=== PATIENT | male | born 1940 | race Caucasian/White ===

== ENCOUNTER 2023-11-12 09:54 | Emergency (ER) | payer MEDICARE ==
[~2023-11-12] VITALS: Ht 188 cm; Wt 97.7 kg
[~2023-11-12 09:54] MED LIST: CYCL-1 PO; HYDR-4383 PO
[2023-11-12 10:24] LABS: BASOPHILS % (AUTO) 0.7 % (0-1); EOSINOPHILS % (AUTO) 0.6 % (0-6); HEMATOCRIT 28.8 % (42.0-52.0); LYMPHOCYTES # (AUTO) 0.3 X10'3 (1.1-4.8); LYMPHOCYTES % (AUTO) 17.1 % (21-51); MEAN CORPUSCULAR HEMOGLOBIN 34.7 PG (27.0-31.0); MEAN CORPUSCULAR HGB CONC 34.7 g/dL (33.0-36.5); MEAN PLATELET VOLUME 8.5 FL (7.4-10.4); MONOCYTES # (AUTO) 0.4 X10'3 (0-0.9); MONOCYTES % (AUTO) 27.6 % (2-12); NEUTROPHILS # (AUTO) 0.9 X10'3 (1.8-7.7); PLATELET COUNT 58 X10'3 (140-440); RED BLOOD COUNT 2.88 X10'6 (4.70-6.10); WHITE BLOOD COUNT 1.6 X10'3 (4.5-11.0)
[2023-11-12] MEDS: normal saline 1000ML IV soln IV ONE (10:40)
[2023-11-12 10:59] LABS: ANISOCYTOSIS 2+; NUCLEATED RED BLOOD CELLS 1 /100WBC (0-0); PLATELET ESTIMATE DECREASED; TOTAL CELLS COUNTED 100
[2023-11-12 11:00] LABS: TEAR DROP CELLS 1+
[2023-11-12 11:43] LABS: ALBUMIN 3.6 G/DL (3.4-5.0); ANION GAP 8 (8-16); BLOOD UREA NITROGEN 21 MG/DL (7-18); BUN/CREATININE RATIO 18.6 (10.0-20.0); CALCIUM 9.3 MG/DL (8.5-10.1); CHLORIDE 102 MMOL/L (99-107); CREATININE 1.13 MG/DL (0.60-1.10); GLUCOSE 119 MG/DL (70-104); MAGNESIUM 1.8 MG/DL (1.5-2.4); POTASSIUM 3.9 MMOL/L (3.5-5.1); SODIUM 138 MMOL/L (135-145); TOTAL CARBON DIOXIDE 28.2 MMOL/L (24-32); eCRCL 59 ML/MIN; eGFR 62 ML/MIN
[2023-11-12 13:06] VITALS: BP 111/71; PULSE 90; RESP 20; TEMP 97.8; O2SAT 96
== END 2023-11-12 13:13 | disposition home or self-care (01) ==
LOC: ER 09:54
DX: S01.01XA Laceration without foreign body of scalp, initial encounter (principal); R55 Syncope and collapse; Z88.2 Allergy status to sulfonamides; W10.8XXA Fall (on) (from) other stairs and steps, initial encounter; Y93.89 Activity, other specified; Y92.89 Other specified places as the place of occurrence of the external cause; Y99.8 Other external cause status
CPT/HCPCS: 12001; 36415; 70450; 71045; 80048; 83605; 83735; 84145; 84484; 85007; 85025; 85379; 87040; 93005; 96360; 99285; A6402; J7030; A6449

== ENCOUNTER 2024-09-15 08:04 | Emergency (ER) | payer MEDICARE ==
[~2024-09-15] VITALS: Ht 193 cm; Wt 109.1 kg
[~2024-09-15 08:04] MED LIST changes: +ASPI81TA53 PO; +ATEN-236 PO; +ATOR40TA71 PO; +CARB1TAB36 PO; -CYCL-1 PO; -HYDR-4383 PO
--- NOTE | 2024-09-15 08:22 | ELECTROCARDIOGRAPH REPORT ---
[facility] Test Date: 2024-09-15 Test Time: 08:17:02 Pat Name: ZAC PIERRE Department: [facility]-ER Patient ID: [id number] Room: Gender: M Child Support Specialist: : 1940 Requested By: GERRY MCDANIEL Order Number: [id number] Reading MD: Measurements Intervals [place] Rate: 73 P: -5 UT: 198 QRS: -35 QRSD: 85 T: 56 QT: 362 QTc: 399 Interpretive Statements Sinus rhythm Atrial premature complex Abnormal R-wave progression, early transition Inferior infarct, old Please click the below link to view image of tracing.
[2024-09-15 08:36] LABS: BASOPHILS % (AUTO) 0.5 % (0-1); EOSINOPHILS # (AUTO) 0.1 X10'3 (0-0.9); EOSINOPHILS % (AUTO) 2.2 % (0-6); HEMATOCRIT 48.7 % (42.0-52.0); HEMOGLOBIN 17.1 g/dl (14.0-17.9); LYMPHOCYTES # (AUTO) 0.6 X10'3 (1.1-4.8); LYMPHOCYTES % (AUTO) 8.9 % (21-51); MEAN CORPUSCULAR HGB CONC 35.2 g/dL (33.0-36.5); MEAN CORPUSCULAR VOLUME 96.6 FL (78-98); MEAN PLATELET VOLUME 7.5 FL (7.4-10.4); MONOCYTES # (AUTO) 0.6 X10'3 (0-0.9); NEUTROPHILS # (AUTO) 5.2 X10'3 (1.8-7.7); NEUTROPHILS % (AUTO) 79.4 % (42-75); PLATELET COUNT 134 X10'3 (140-440); RED BLOOD COUNT 5.04 X10'6 (4.70-6.10); RED CELL DISTRIBUTION WIDTH 15.1 % (11.5-14.5); WHITE BLOOD COUNT 6.6 X10'3 (4.5-11.0)
[2024-09-15 08:42] VITALS: TEMP 97.4
--- NOTE | 2024-09-15 08:45 | Physician Documentation ---
History of Present Illness ~ Chief Complaint: Shortness of Breath Stated Complaint: LOW O2 Primary Medical Doctor: Jr Source: patient, family Mode of Arrival: Dropped Off Exam Limitations: no limitations HPI 84-year-old male(daughter Ms. Simeon is at bedside, recovery room nurse at [facility]) with past medical history of hyperlipidemia, MARIA FERNANDA on CPAP, bilateral hearing loss , B-cell lymphoma, marginal zone lymphoma status post chemotherapy, parkinsons disease, COVID-19 disease presented to the the ER with a chief complaints of shortness of breath. Endorses shortness of breath for the past 2-3 weeks associated with orthopnea but not PND. Reports sudden dropping of saturation to 70% from his normal baseline O2 saturation(usually more than 90%). He reports wheezing which is aggravated for the past 3-4 weeks. Endorses cough for the past couple of months, white, mucoid , thick, clear and he could not able to clear the mucus. He endorses dizziness. he denied chest pain, palpitations, swelling of legs, fever, abdominal pain, abdominal distention, allergies, bladder& bowel irregularities, sleep&appetite disturbances. Denied heartburn, indigestion, nausea, dyspepsia , acid reflux. Daughter, Ms. Simeon reports that he got respiratory failure, emphysema (diagnosed one-week back by Dr. Easton) secondary to statins which was started one month back in [facility] that patient discontinue the statin. His haemo-oncologist is Dr. Brewer at [facility]. He was a heavy cigarette smoker,> 3-4 pack of cigarettes for more than 25 years but he quit smoking in 1991. Medication Reconciliation Allergies: Coded Allergies: Sulfa (Sulfonamide Antibiotics) (Verified Allergy, Mild, 08/09/24) Scheduled Aspirin (Children's Aspirin), 81 MG PO DAILY@0830 Atenolol (Atenolol), 1 TAB PO DAILY, (Reported) Atorvastatin Calcium (Atorvastatin Calcium), 1 TAB PO DAILY Carbidopa/Levodopa (Carbidopa-Levodopa 25-100 Tab), 1 TAB PO BID, (Reported) Past Medical History Past Medical History: CVA/TIA/Stroke, Parkinson's Disease, High Cholesterol, Hy pertension, Emphysema, Sleep Apnea, Chronic Pain, *CANCER*, Lymphoma Other Past Medical History: Parkinson's disease, B-cell lymphoma & marginal zone lymphoma diagnosed in June 2023 . Received chemotherapy . Past Surgical History: orthopedic surgeries Other Past Surgical History: Neck fusion, right shoulder, left knee, nose,carpal tunnel syndromesurgery Patient History: FH: breast cancer MOTHER FH: lung cancer FATHER Smoking Status: Former smoker Alcohol Use: None Drug Use: none Lives In: Home Review of Systems All Other Systems at this time: Reviewed and Negative ROS Reviewed in full and negative except positive pertinent in hpi Physical Exam Vital Signs: Temperature: 97.4, Source: Oral, Heart Rate: 66, Respiratory Rate: 12, BP: 129/77, Pulse Oximetry: 94, Weight: 109.090 Oxygen Flow Rate: 0 Physical Exam Gen. No acute distress alert and oriented 4 HEENT: Mucositis and glossitis is present. Posterior pharynx is reddened. No JVD, carotid upstroke Respiratory system: Bilateral normal vesicular breath sounds are heard. Bilateral in his. Bilateral crepitations in infrascapular on and interscapular areas. Cardiovascular system: normal sinus rhythm. First and second heart sounds are hard. no murmurs rubs or clicks noted Gastrointestinal: soft nontender bowel sounds are normoactive Extremities: clubbing cyanosis, nor edema appreciated bilaterally Central nervous system: No functional neurological deficits Psychiatric: Mood and affect is normal Skin: Warm and dry Progress Progress Note Patient states that he is improved with albuterol ipratropium nebulization. Results/Orders Results/Orders Orders - DAKOTA BECERRA RES Echocardiogram (09/15/24 09:25) Cta Chest Pe (09/15/24 09:29) Completed Orders - DAKOTA BECERRA RES Ipratropium/Albuterol Nebule (Ipratrop/A (09/15/24 09:20) Add On Test (09/15/24 09:21) Hs Troponin I W Calculations (09/15/24 09:21) Echocardiogram (09/15/24 09:25) Cta Chest Pe (09/15/24 09:29) Methylprednisolone Sod Succ (Solumedrol (09/15/24 09:35) Iohexol 350mg/Ml 100ml (Omnipaque 350mg/ (09/15/24 09:39) Medications Received in ER Medications (Trade) Dose Ordered Sig/Navid Route PRN Reason Start Time Stop Time Status Last Admin Dose Admin (ipratrop/ albuterol 0.5-3(2.5) MG/3ml nebule) 3 ml ONCE ONCE NEB 09/15/24 09:20 09/15/24 09:22 DC 09/15/24 10:05 3 ML (SoluMEDROL 125mg inj) 125 mg ONCE ONCE IV 09/15/24 09:35 09/15/24 09:36 DC 09/15/24 10:04 125 MG Vital Signs 09/15/24 09/15/24 09/15/24 09/15/24 08:12 08:40 08:42 10:06 Temp 97.4 97.4 Pulse 74 66 62 Resp 18 12 12 14 B/P (MAP) 138/89 129/77 (94) Pulse Ox 95 94 92 O2 Delivery Room Air* O2 Flow Rate 0 0 0 FiO2 21 09/15/24 09/15/24 10:08 10:10 Pulse 64 71 Resp 16 12 B/P (MAP) 132/77 (95) Pulse Ox 99 99 O2 Delivery Room Air* O2 Flow Rate 0 0 FiO2 21 Laboratory Tests Test 09/15/24 08:26 White Blood Count 6.6 Red Blood Count 5.04 Hemoglobin 17.1 Hematocrit 48.7 Mean Corpuscular Volume 96.6 Mean Corpuscular Hemoglobin 34.0 H Mean Corpuscular Hemoglobin Concent 35.2 Red Cell Distribution Width 15.1 H Platelet Count 134 L Mean Platelet Volume 7.5 Neutrophils (%) (Auto) 79.4 H Lymphocytes (%) (Auto) 8.9 L Monocytes (%) (Auto) 9.0 Eosinophils (%) (Auto) 2.2 Basophils (%) (Auto) 0.5 Neutrophils # (Auto) 5.2 Lymphocytes # (Auto) 0.6 L Monocytes # (Auto) 0.6 Eosinophils # (Auto) 0.1 Basophils # (Auto) 0.0 CBC Comment Erythrocyte Sedimentation Rate 7 D-Dimer 0.52 H D-Dimer Comment Sodium Level 144 Potassium Level 4.2 Chloride Level 106 Carbon Dioxide Level 30.2 Anion Gap 8 Blood Urea Nitrogen 16 Creatinine 1.05 Estimated GFR/1.73 m2 67 BUN/Creatinine Ratio 15.2 Glucose Level 128 H Calcium Level 9.0 Total Bilirubin 0.7 Aspartate Amino Transf (AST/SGOT) 21 Alanine Aminotransferase (ALT/SGPT) 29 Alkaline Phosphatase 107 Troponin I High Sensitivity 9 Pro-B-Type Natriuretic Peptide 121 Total Protein 6.8 Albumin 4.0 Globulin 2.8 Albumin/Globulin Ratio 1.4 Chemistry Comments Medical Decision Making Findings We considered the differential diagnosis of COPD, pulmonary embolism, intersti tial lung disease evaluation with CBC, CMP, EKG, chest x-ray, CT angiography CBC and CMPis okay Chest x-ray showed right atrium,left atrium right ventricular hypertrophy EKG does not showed STEMI D-dimer is mildly elevated ,0.52 CTA PE protocol showed IMPRESSION: Emphysematous changes in both lungs 1. No pulmonary embolism. 2. Elevation of the left hemidiaphragm. Bibasilar atelectasis and consolidation. Less than 6 mm nodule right lung base. Consider follow-up chest CT in 6 months. Even though his CTA angiography showed consolidation but we do not think he has a consolidation and it seems to be bibasilar atelectasis. Treated with DuoNeb breathing treatment and 125 mg of methylprednisolone IV dose. We wanted the patient to be admitted to the floors for further evaluation but patient& patient's daughter and wanted him to be admitted in the floor & reported that he is following Dr. Easton,the nurse informaticist. He is going to get the home oxygen on today/tomorrow. He is feeling a lot better on he saturation does not drop much after walking with and without oxygen. Oxygen saturation 98 before walking and 94-95 after walking.Patient will be going home with albuterol inhaler and prednisone 40 mg p.o. for five days. Differential Dx:Considerations: Include: respiratory distress, respiratory failure Departure Disposition: 01 HOME / SELF CARE / HOMELESS Impression: Primary Impression: Shortness of breath Additional Impressions: Emphysema lung COPD (chronic obstructive pulmonary disease) COPD (chronic obstructive pulmonary disease) with emphysema COPD with acute exacerbation Condition: Stable Discharge Instructions: COPD and Physical Activity, Form - COPD Action Plan, Pulmonary Nodule, [id number]-Qpnm Referrals: NO PRIMARY CARE PROVIDER (PCP) Prescriptions Prednisone (Prednisone) 10 Mg Tablet 40 MG PO DAILY for 5 Days, #20 TABLET Tab prednisone 40 mg p.o. daily for five days Prov: DAKOTA BECERRA, AL[place] 09/15/24 albuterol inhaler (Pro-Air Inhaler) 8.5 Gm Inhaler 2 PUFFS INH Q4HPRN PRN for wheezing for 30 Days, #18 GM Prov: DAKOTA BECERRA, RES 09/15/24 Education Educated: Patient, Family Educated regarding: diagnosis, treatment, prognosis, need for follow up Signature Scribe Signature: The note accurately reflects work and decisions made by me.Dakota Becerra - Resident 09/15/24 11:58 Attestation: The note accurately reflects work and decisions made by me.Dakota Becerra - Resident 09/15/24 11:58 DAKOTA BECERRA, RES Sep 15, 2024 08:45
[2024-09-15 08:51] LABS: ALANINE AMINOTRANSFERASE 29 U/L (12-78); ALBUMIN/GLOBULIN RATIO 1.4 (1.1-1.5); ALKALINE PHOSPHATASE 107 IU/L (46-116); ANION GAP 8 (8-16); ASPARTATE AMINO TRANSFERASE 21 U/L (10-37); BILIRUBIN,TOTAL 0.7 MG/DL (0.1-1.0); BLOOD UREA NITROGEN 16 MG/DL (7-18); BUN/CREATININE RATIO 15.2 (10.0-20.0); CHLORIDE 106 MMOL/L (99-107); CREATININE 1.05 MG/DL (0.60-1.10); GLUCOSE 128 MG/DL (70-104); POTASSIUM 4.2 MMOL/L (3.5-5.1); SODIUM 144 MMOL/L (135-145); TOTAL CARBON DIOXIDE 30.2 MMOL/L (24-32); TOTAL PROTEIN 6.8 G/DL (6.4-8.2); eCRCL 65 ML/MIN; eGFR 67 ML/MIN
--- NOTE | 2024-09-15 08:53 | RADIOLOGY REPORT ---
DI CHEST,SINGLE VIEW, HISTORY: CP COMPARISON: DI CHEST,SINGLE VIEW on DOS: 08/09/24, DI CHEST,SINGLE VIEW on DOS: 11/12/23 DI CHEST,SINGLE VIEW on DOS: 08/09/24, DI CHEST,SINGLE VIEW on DOS: 11/12/23 TECHNICAL DATA: 1 view of the chest was obtained. FINDINGS: Lines and tubes: None Cardiomediastinal silhouette: normal Pulmonary vasculature: normal Lung expansion: normal Lung airspace: normal Lung interstitium: normal Pleura: normal Pneumothorax: no Bones: Unremarkable Other: no IMPRESSION: No acute intrathoracic abnormality.
[2024-09-15 09:13] LABS: PRO BRAIN NATRIURETIC PEPTIDE 121 PG/ML (0-450)
[2024-09-15] MEDS ORDERED: iohexol 350MG/ML 100ml bottle IV ONE (09:39)
[2024-09-15 09:48] LABS: D-DIMER 0.52 MG/L FEU (0-0.50)
[2024-09-15] MEDS: methylPREDNISolone sod succ 125mg/2ml vial IV ONE (10:04)
[2024-09-15] MEDS: ipratropium/albuterol 3ml nebule NEB ONE (10:05)
[2024-09-15 10:06] VITALS: PULSE 62; RESP 14; O2SAT 92
[2024-09-15 10:10] VITALS: PULSE 71; RESP 12; O2SAT 99
--- NOTE | 2024-09-15 10:43 | RADIOLOGY REPORT ---
CTA Chest with intravenous contrast INDICATION: sob COMPARISON: None TECHNIQUE: Multidetector spiral CTA of the chest was performed of the chest with intravenous contrast . PULMONARY ANGIOGRAPHY PROTOCOL was utilized using a bolus-tracking technique centered on the main p ulmonary artery. Axial, coronal and sagittal multiplanar and MIP reformats were performed. CONTRAST: Type of contrast: Omni 350 Contrast injected: 100 ml Radiation dose : Chest: CTDI volume is 27 mGy. Dose-length product is 844 mGy*cm The dose indicators for CT are the volume computed Tomography (CT) dose Index (CTDIvol) and the dose Length product (DLP), and are measured in units of mGy and mGy-cm, respectively. These indicators are not patient dose, but values generated from the CT scanner acquisition factors. The report includes radiation exposure data for exposures received during this examination. Findings: Pulmonary artery: No pulmonary embolism Lower neck: Normal thyroid. Lungs: Emphysematous changes in both lungs. Less than 6 mm nodule right lower lung. Mild atelectasis and consolidation in the lung bases. Elevation of the left hemidiaphragm. Heart/Vascular Structures: Normal heart size. No pericardial effusion. Lymph Nodes: No adenopathy Pleura: No pleural effusion or significant pneumothorax. Musculoskeletal: No acute osseous abnormality. Soft tissues: Normal. Upper abdomen: Numerous hepatic cysts. IMPRESSION: 1. No pulmonary embolism. 2. Elevation of the left hemidiaphragm. Bibasilar atelectasis and consolidation. Less than 6 mm nodu le right lung base. Consider follow-up chest CT in 6 months. HS:Y
[2024-09-15] MEDS ORDERED: ALBU8HFA INH (11:55)
[2024-09-15] MEDS ORDERED: PRED10TA23 PO (11:55)
[2024-09-15 12:10] VITALS: BP 148/107; PULSE 77; RESP 16; O2SAT 94
--- NOTE | 2024-09-16 18:11 | CARDIOLOGY REPORT ---
APPROVED REPORT EXAM: Limited 2D, Doppler, and color-flow Echocardiogram. Patient Location: ER RM 1 Blood Pressure: 129/77 mmHg Heart Rate: 80 bpm Indications Shortness of Breath HX of CVA/TIA LAN/WAN ENGINEER: Janak Quintana MD Previous ECHO: 08/09/24, [facility], EF: 65; (-) Saline Bubble for PFO 2D Dimensions IVSd 0.9 (0.7-1.1cm) LVDd 4.9 cm PWd 1.1 (0.7-1.1cm) IVSs 1.6 (0.8-1.2cm) LVDs 3.4 (2.5-4.0cm) PWs 1.3 (0.8-1.2cm) LVEF(%) 59.0 (>50%) IVC 17.97 mm FS (%) 31.4 % SV 68.2 ml CO 5.5 L/min Aortic Valve AoV Peak Michael. 172.9 cm/s AO Peak GR. 12.0 mmHg Tricuspid Valve TR P. Velocity 237 cm/s RAP ESTIMATE 10 mmHg TR Peak Gr. 22 mmHg RVSP 32 mmHg LEFT VENTRICLE Normal LV size and wall thickness. Overall systolic function is normal. LVEF is 60-65%. RIGHT VENTRICLE Right ventricle is mild to moderately dilated with adequate function. ATRIA The left atrium size is normal. AORTIC VALVE Trileaflet AV appears mildly sclerotic without stenosis. Trace insufficiency. AV not fully evaluated due to limited focused exam. MITRAL VALVE Mild mitral annular calcification without stenosis. Trace regurgitation MV not fully evaluated due to limited focused exam. TRICUSPID VALVE Tricuspid valve is grossly normal in structure with trace regurgitation. PULMONIC VALVE Pulmonic valve is grossly normal in structure. GREAT VESSELS IVC is normal in size. PERICARDIUM Normal pericardium. No effusion. Anterior epicardial fat pad is present. Other Information Study Quality: Adequate Conclusion Normal LV size and wall thickness. Overall systolic function is normal. LVEF is 60-65%. Right ventricle is mild to moderately dilated with adequate function. The left atrium size is normal. Trileaflet AV appears mildly sclerotic without stenosis. Trace insufficiency. AV not fully evaluate d due to limited focused exam. Mild mitral annular calcification without stenosis. Trace regurgitation MV not fully evaluated due to limited focused exam. Tricuspid valve is grossly normal in structure with trace regurgitation. Normal pericardium. No effusion. Anterior epicardial fat pad is present.
== END 2024-09-15 12:11 | disposition home or self-care (01) ==
LOC: ER 08:04
DX: J43.9 Emphysema, unspecified (principal); J44.1 Chronic obstructive pulmonary disease with (acute) exacerbation; E78.00 Pure hypercholesterolemia, unspecified; G20.A1 Parkinson's disease without dyskinesia, without mention of fluctuations; I10 Essential (primary) hypertension; Z86.73 Personal history of transient ischemic attack (TIA), and cerebral infarction without residual deficits; Z87.891 Personal history of nicotine dependence; Z88.2 Allergy status to sulfonamides; Z79.82 Long term (current) use of aspirin
CPT/HCPCS: 36415; 71045; 71275; 80053; 83880; 84484; 85025; 85379; 85651; 93005; 93308; 94640; 96374; 99285; A4615; J2919; Q9967; 94760